=== PATIENT | male | born 2005 | race Caucasian/White ===

== ENCOUNTER 2024-12-23 15:05 | Emergency (ER) | payer SELFPAY ==
[~2024-12-23] VITALS: Ht 195.6 cm; Wt 97.5 kg
== END 2024-12-23 17:50 | disposition home or self-care (01) ==
LOC: ER 15:05
DX: S01.81XA Laceration without foreign body of other part of head, initial encounter (principal); Z23 Encounter for immunization; X58.XXXA Exposure to other specified factors, initial encounter; Y93.67 Activity, basketball
CPT/HCPCS: 12011; 90471; 90715; 99282-25